=== PATIENT | male | born 1950 | race Caucasian/White ===

== ENCOUNTER 2023-07-22 20:04 | Emergency (ER) | payer OTHER ==
--- OUTSIDE RECORDS SUMMARY | 2023-07-22 20:08 | XMS REPORT | Clinical Summary ---
Author Name Unknown Organization [facility] Address [address] [place] [address] Care Team Providers Care Senior Outside Sales Representative Name Role Phone Ginger Turk Unavailable [phone] Gibson Morales MD Unavailable [email or web address] Cheryl Melgar ACADEMIC AFFAIRS DIRECTOR Unavailable [email or web address] Jono Fournier MD Primary Care Provider Pierre Bynum MD Unavailable [phone] Nikolas Finley MD Unavailable + [phone] Yonathan Sommers MD Unavailable Mayo LIU MD, William J Unavailable [phone] Tuan Ahmadi MD Unavailable [phone] Og Loomis MD Unavailable [phone] Jean Martinez MD Unavailable [phone] Keith Edmondson MD Unavailable Ed Mina MD Unavailable [phone] Ro Gilliam MD Unavailable [phone] Jono Hinson MD Unavailable Pasquale Jacome MD Unavailable Clifton Ahmadi MD Unavailable [phone] Allergies No known active allergies Medications Medication Sig Dispensed Refills Start Date End Date Status levothyroxine (SYNTHROID, LEVOTHROID) 25 mcg tablet Take 1 tablet (25 mcg) by mouth daily. Active TRAVOPROST OPHTHALMICIndica tions:bilateral Apply 1 drop to eye daily. Active alfuzosin (UROXATRAL) 10 mg 24 hr tabletIndication s:Benign prostatic hyperplasia with lower urinary tract symptom TAKE ONE TABLET BY MOUTH DAILY 90 tablet 3 05/29/2022 Active dorzolamide (TRUSOPT) 2% ophthalmic solution 06/06/2022 Active tolterodine (DETROL LA) 4 mg 24 hr capsuleIndicatio ns:Benign prostatic hyperplasia with lower urinary tract symptom Take 1 capsule (4 mg) by mouth daily. 90 capsule 3 09/07/2022 Active travoprost (TRAVATAN Z) 0.004% ophthalmic solution INSTILL 1 DROP IN BOTH EYES EVERY EVENING 11/21/2022 Active levothyroxine (SYNTHROID, LEVOTHROID) 50 mcg tablet TAKE 1 TABLET BY MOUTH DAILY IN THE MORNING ON AN EMPTY STOMACH 09/29/2022 Active senna-docusate (SENOKOT-S) 8.6 mg-50 mg tabletIndication s:Incisional hernia,Ventral hernia Take 1 tablet by mouth 2 (two) times a day as needed for constipation . 30 tablet 05/02/2021 3 Discontinued tolterodine (DETROL LA) 4 mg 24 hr capsuleIndicatio ns:Benign prostatic hyperplasia with lower urinary tract symptom Take 1 capsule (4 mg) by mouth daily. 90 capsule 3 09/04/2021 3 Discontinued(Reor hien) dorzolamide-danyelle lol, PF, 2-0.5 % dpet Apply 1 drop to eye. 10/04/2021 3 Discontinued(Ther apy completed) acetaminophen (TylenoL) 325 mg tabletIndication s:Inguinal hernia,Postopera tive pain Take 2 tablets (650 mg) by mouth every 6 (six) hours. 30 tablet 05/27/2022 3 Discontinued(Ther apy completed) celecoxib (CeleBREX) 200 mg capsuleIndicatio ns:Inguinal hernia,Postopera tive pain Take 1 capsule (200 mg) by mouth daily. 30 capsule 05/27/2022 3 Discontinued(Ther apy completed) methocarbamol (Robaxin-750) 750 mg tabletIndication s:Inguinal hernia,Postopera tive pain Take 1 tablet (750 mg) by mouth every 8 (eight) hours as needed (post op pain). 30 tablet 05/27/2022 3 Discontinued(Ther apy completed) acetaminophen (TylenoL) 325 mg tabletIndication s:Inguinal hernia,Postopera tive pain Take 2 tablets (650 mg) by mouth every 6 (six) hours as needed for mild pain. 45 tablet 05/27/2022 3 Discontinued(Ther apy completed) methocarbamol (Robaxin-750) 750 mg tabletIndication s:Inguinal hernia,Postopera tive pain Take 1 tablet (750 mg) by mouth every 8 (eight) hours as needed (post op pain). 30 tablet 05/27/2022 3 Discontinued(Ther apy completed) celecoxib (CeleBREX) 200 mg capsuleIndicatio ns:Inguinal hernia,Postopera tive pain Take 1 capsule (200 mg) by mouth twice daily. 30 capsule 05/27/2022 3 Discontinued(Ther apy completed) Active Problems Problem Noted Date Diagnosed Date Personal history of colon polyps 09/12/2021 Overview: 2pm, Estevan Dockery. , consult Cc: patient requesting consult to discuss appropriate timing for colonoscopy interval. last colonoscopy 3 years ago (2018), he is working on uploading records into chart. Department: [facility] Ordering/Authorizing: VISHAL RussoVanesa Barreto is a 71 y.o. male from [place], [place] with multiple comorbidities including GERD, hypothyroidism, obstructive sleep apnea, incisional hernia, and anemia. Patient is here today requesting consult to discuss appropriate timing for colonoscopy. Last OS colonoscopy 3 years ago (2018). History of prostate adenocarcinoma. Diagnosed in 05/2018. Started Hormonal Lupron injection since 12/09/18. Prostatectomy aborted due to the finding of peritoneal plaques and biopsies showed mesothelioma of peritoneum. Radiation to prostate (VMAT) 7800 cGy in 39 fractions from 05/05/19 - 06/28/19. 24 months of concurrent ADT with an LHRH agonist beginning 12-09-2018. Followed by [facility], Dr. Tuan Ahmadi. History of mesothelioma of peritoneum. On 07/14/2018, He was scheduled for robotic prostatectomy which was aborted when he was found to have peritoneal plaques. Biopsy revealed mesothelioma of peritoneum. He underwent Cytoreductive Surgery with hyperthermic intraperitoneal chemotherapy with cisplatin on 08/25/2018. He is currently on observation. No further chemoradiation. Followed by GI Surgery, Dr. Jean Martinez. 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 Patient is currently on observation with Dr. Pasquale Jacome. Patient had CT chest abdomen pelvis w wo contrast on 07/22/2018 for restaging of mesothelioma and had incidental finding of an enhancing lesion in the pancreas for suspected neuroendocrine tumor of pancreas. Tumor is stable and on observation with Dr. Og Loomis. He had a ventral hernia repair with mesh, exploratory celiotomy (laparotomy), freeing of intestinal adhesions with general surgery, Dr. Keith Edmondson on 04/30/2021. Patient has a history of glaucoma in both eyes (not sure open vs closed angle), but he is under care of an outside cost coordinator. GI symptom: Senna- docusate 8.6-50mg tablet, 1 tablet PO BID PRN constipation GERD? -Colonoscopy in 2013? -Last colonoscopy 3 years ago (2018). Report available? Any prior colonoscopy prior to radiation therapy? Father history of pancreatic cancer 62 y.o. Hypothyroidism 05/01/2021 Ventral hernia 03/07/2021 Overview: Added automatically from request for surgery [id number] Anemia 09/09/2019 Incisional hernia 07/22/2019 Bradycardia 08/13/2018 Last Assessment & Plan: Asymptomatic, I expect his sleeping pulse to be in the 40s. No intervention unless symptomatic Mesothelioma of peritoneum 07/31/2018 Abnormal radiographic imaging of pancreas 2018 Encounter for other preprocedural examination Overview: EKG 06/30/2018= Sinus bradycardia. HR 45. Pt is very active and has long h/o low HR. He is asymptomatic. He wears a Fit Bit and his pulse in clinic is consistently 58. Last Assessment & Plan: He walks more than 10k and 20k steps a day. Obesity 07/01/2018 Overview: BMI Readings from Last 2 Encounters: 07/01/18 31.14 kg/m 06/03/18 31.80 kg/m Last Assessment & Plan: He is working on a weight loss regimen Obstructive sleep apnea 07/01/2018 Overview: Uses CPAP "about 50% of the time" Pt knows to bring CPAP with him to procedure Last Assessment & Plan: Currently stable, no further recommendations are being made in regards to this for the planned procedure. For the purposes of perioperative evaluation, this particular issue should not be a concern, continue any medications that are associated with the issue. The patient may follow up with his / her PCP or appropriate MD Krunal Team for management of this issue. Gastroesophageal reflux disease 07/01/2018 Overview: occ r/t diet. No meds Last Assessment & Plan: Currently stable, no further recommendations are being made in regards to this for the planned procedure. For the purposes of perioperative evaluation, this particular issue should not be a concern, continue any medications that are associated with the issue. The patient may follow up with his / her PCP or appropriate MD Krunal Team for management of this issue. Adenocarcinoma of prostate 06/03/2018 Dependence on continuous pos itive airway pressure ventilation (aka CPAP ventilation dependent) Last Assessment & Plan: Pt will bring cpap device to hospital Follicular lymphoma Mass of pancreas Encounters Date Type Department Care Team Description 02/04/2023 Orders Only [facility] [address] [facility], 7th [place] [address] Jeannie Das PA Mass of pancreas (Primary Dx) 01/29/2023 8:37 AM ROCK CRUSHER - 01/29/2023 11:59 PM ROCK CRUSHER Hospital Encounter [facility] [address] [place] [id number] Beckie Alegria APRN Adenocarcinoma of prostate Discharge Disposition: Home 01/29/2023 8:26 AM ROCK CRUSHER - 01/29/2023 8:36 AM ROCK CRUSHER Hospital Encounter Radiation Oncology [address] [place] [address], 1st [place] [address] Adis Echevarria APRN Montoya, Anya M, APRN Adenocarcinoma of prostate Discharge Disposition: Home 01/28/2023 Orders Only Radiation Oncology [address] [place] [address], 1st [place] [address] Beckie Alegria APRN Adenocarcinoma of prostate (Primary Dx) 01/16/2023 4:40 PM ROCK CRUSHER Telemedicine [facility] [address] [facility], 6th [place] [address] Pasquale Jacome MD Follicular lymphoma, not otherwise specified (Primary Dx) 01/16/2023 10:35 AM ROCK CRUSHER Ancillary Procedure CT Imaging [address] [place] [address], 7th [place] [address] Pasquale Jacome MD Follicular lymphoma, not otherwise specified 01/16/2023 9:30 AM ROCK CRUSHER - 01/16/2023 11:59 PM ROCK CRUSHER Hospital Encounter [facility] [address] [place] [id number] Pasquale Jacome MD Follicular lymphoma, not otherwise specified; Mesothelioma of peritoneum Discharge Disposition: Home 01/16/2023 Orders Only Radiation Oncology [address] [place] [address], 1st [place] [address] Adis Echevarria APRN Adenocarcinoma of prostate (Primary Dx) 01/16/2023 Orders Only Radiation Oncology [address] [place] [address], 1st [place] [address] Adis Echevarria APRN Adenocarcinoma of prostate (Primary Dx) 12/17/2022 2:00 PM CDT Telemedicine [facility] [address] [place] [address], [facility] [place] [address] Keith Edmondson MD Abdominal hernia, not otherwise specified (Primary Dx) 09/27/2022 Orders Only [facility] [address] [place] [address], [facility] [place] [address] Sandra Akers APRN Mesothelioma of peritoneum (Primary Dx) 09/19/2022 8:30 AM CDT Telemedicine [facility] [address] [place] [address], [address] [place] [address] [place] [address] Jean Martinez MD Mesothelioma of peritoneum 09/13/2022 1:40 PM CDT Telemedicine [facility] [place] - Surgical Oncology [address] [place] [address], [address] [place] [address] [place] [address] Judy Amaro PA Mata, Daniel F, PA Abnormal radiographic imaging of pancreas 09/10/2022 4:00 PM CDT Telemedicine [facility] [address] [place] [address], [address] [place], [place] [address] [address] Pasquale Jacome MD Follicular lymphoma, not otherwise specified (Primary Dx) 09/10/2022 9:00 AM CDT Ancillary Procedure CT Imaging [facility], [address] [place] [address] [place] [address] Pasquale Jacome MD Follicular lymphoma, not otherwise specified 09/10/2022 7:58 AM CDT - 09/10/2022 11:59 PM CDT Hospital Encounter [facility] [address] [place] [address] Pasquale Jacome MD Follicular lymphoma, not otherwise specified; Abnormal radiographic imaging of pancreas Discharge Disposition: Home 09/10/2022 Telephone [facility] [address] [place] [address], [facility] [place] [address] Carito Mendoza RN 09/03/2022 10:00 AM CDT Follow-Up Genit[facility] Cancer Center [address] [facility], 7th [place] [address] Jerel Huber IV, MD Benign prostatic hyperplasia with lower urinary tract symptom 09/03/2022 Travel after 07/22/2022 Immunizations Name Administration Dates Next Due Moderna SARS-CoV-2 Vaccination 06/05/2020,2020 Surgical History Surgery Date Site/Laterality Comments UMBILICAL HERNIA REPAIR 02/18/2008 - 02/16/2009 unknown status of mesh. REPAIR OF REDUCIBLE INGUINAL HERNIA 02/17/2013 - 02/16/2014 Left with mesh. PA LAPS SURG BILATERAL TOTAL PELVIC LMPHADECTOMY 07/14/2018 Right Procedure: ROBOTIC ASSISTED PELVIC LYMPHADENECTOMY; Surgeon: Jono Fournier MD; Location: MAIN OR; Service: UROLOGY EXCISION WIDE LOCAL IOLM SNB UPPER LIMB 10/16/2012 Left VASECTOMY WISDOM TOOTH EXTRACTION PA UNLISTED CHEMOTHERAPY PROCEDURE 08/25/2018 Abdomen/N/A Procedure: (HIPEC) HYPERTHERMIC INTRAPERITONEAL CHEMOTHERAPY (HIPEC); Surgeon: Jean Martinez MD; Location: MAIN OR; Service: SURG ONC - GASTRIC/HIPEC Medical devices from this surgery are in the Medical Devices section. PA LAPS ABD PRTM&OMENTUM DX W/WO SPEC BR/WA SPX 08/25/2018 Abdomen/N/A Procedure: DIAGNOSTIC LAPAROSCOPY OF ABDOMEN, PERITONEUM, AND OMENTUM; Surgeon: Jean Martinez MD; Location: MAIN OR; Service: SURG ONC - GASTRIC/HIPEC Medical devices from this surgery are in the Medical Devices section. PA EXCISION/DESTRUCTION OPEN ABDOMINAL TUMOR 5 CM/< 08/25/2018 Abdomen/N/A Procedure: EXCISION OR DESTRUCTION, OPEN INTRA-ABDOMINAL TUMORS, CYSTS OR ENDOMETRIOMAS, 1 OR MORE PERITONEAL, MESENTERIC, OR RETROPERITONEAL PRIMARY OR SECONDARY TUMORS; Surgeon: Jean Martinez MD; Location: MAIN OR; Service: SURG ONC - GASTRIC/HIPEC Medical devices from this surgery are in the Medical Devices section. PA CYSTO W/INSERT URETERAL STENT 08/25/2018 Genitalia/Bilateral Procedure: CYSTOURETHROSCOPY WITH INSERTION OF INDWELLING URETERAL STENT; Surgeon: UROLOGY; Location: MAIN OR; Service: UROLOGY Medical devices from this surgery are in the Medical Devices section. COLONOSCOPY OTHER SURGICAL HISTORY 09/02/2012 Left excision melanoma PA REPAIR INCISIONAL HERNIA,REDUCIBLE 04/30/2021 Abdomen/Bilateral Procedure: REPAIR OF REDUCIBLE INCISIONAL OR VENTRAL HERNIA; Surgeon: Keith Edmondson MD; Location: MAIN OR; Service: SURG ONC - GENERAL Medical devices from this surgery are in the Medical Devices section. PA IMPLANT MESH HERNIA REPAIR/DEBRIDEMENT CLOSURE 04/30/2021 Abdomen/Bilateral Procedure: IMPLANTATION OF MESH FOR VENTRAL HERNIA REPAIR - PHASIX; Surgeon: Keith Edmondson MD; Location: MAIN OR; Service: SURG ONC - GENERAL Medical devices from this surgery are in the Medical Devices section. PA MUSC MYOCUTANEOUS/FASCIOCUTA NEOUS FLAP TRUNK 04/30/2021 Abdomen/Bilateral Procedure: MUSCLE/MYOCUTANEOUS/FASCIOC UTANEOUS FLAP OF TRUNK - KEVIN STOPVISHAL; Surgeon: Keith Edmondson MD; Location: MAIN OR; Service: SURG ONC - GENERAL Medical devices from this surgery are in the Medical Devices section. PA INJECTION AA&/STRD INTERCOSTAL NRV EA ADDL LVL 04/30/2021 Abdomen/Bilateral Procedure: REGIONAL ANESTHETIC BLOCK OF ABDOMINAL, BLOCK - TAP; Surgeon: Keith Edmondson MD; Location: MAIN OR; Service: SURG ONC - GENERAL Medical devices from this surgery are in the Medical Devices section. PA EXPLORATORY LAPAROTOMY CELIOTOMY W/WO BIOPSY SPX 04/30/2021 Abdomen/N/A Procedure: EXPLORATORY CELIOTOMY (LAPAROTOMY); Surgeon: Jean Martinez MD; Location: MAIN OR; Service: SURG ONC - GASTRIC/HIPEC Medical devices from this surgery are in the Medical Devices section. PA ENTEROLSS FRING INTSTINAL ADHESION SPX 04/30/2021 Abdomen/N/A Procedure: FREEING OF INTESTINAL ADHESION; Surgeon: Jean Martinez MD; Location: MAIN OR; Service: SURG ONC - GASTRIC/HIPEC Medical devices from this surgery are in the Medical Devices section. PA PHYS STANDBY SVC PROLNG PHYS ATTN EA 30 MINUTES 04/30/2021 Abdomen/N/A Procedure: PHYSICIAN STANDBY SERVICE REQUIRING PROLONGED ATTENDANCE - EACH 30 MINUTES; Surgeon: Ed Mina MD; Location: MAIN OR; Service: PLS - PLASTIC SURGERY Medical devices from this surgery are in the Medical Devices section. PA ENTEROLSS FRING INTSTINAL ADHESION SPX 04/30/2021 Abdomen/N/A Procedure: FREEING OF INTESTINAL ADHESION; Surgeon: Keith Edmondson MD; Location: MAIN OR; Service: SURG ONC - GENERAL Medical devices from this surgery are in the Medical Devices section. PA NEGATIVE PRESSURE WOUND THERAPY DME <= 50 SQ CM 04/30/2021 N/A Procedure: NEGATIVE PRESSURE WOUND THERAPY (WOUND VAC) - PREVENA; Surgeon: Keith Edmondson MD; Location: MAIN OR; Service: SURG ONC - GENERAL Medical devices from this surgery are in the Medical Devices section. PA COLONOSCOPY FLX DX W/COLLJ SPEC WHEN PFRMD 11/08/2021 N/A Procedure: DIAGNOSTIC FLEXIBLE COLONOSCOPY PROXIMAL TO SPLENIC FLEXURE; Surgeon: Jono Hinson MD; Location: MAIN ENDOSCOPY; Service: GASTROENTEROLOGY PA RPR 1ST INGUN HRNA AGE 5 YRS/> REDUCIBLE 05/27/2022 Abdomen/Bilateral Procedure: REPAIR OF REDUCIBLE INGUINAL HERNIA WITH MESH - heavy weight polyproylene, modified julita; Surgeon: Keith Edmondson MD; Location: MAIN OR; Service: SURG ONC - GENERAL Medical devices from this surgery are in the Medical Devices section. PA INJECTION AA&/STRD INTERCOSTAL NRV EA ADDL LVL 05/27/2022 Bilateral Procedure: REGIONAL ANESTHETIC BLOCK OF MULTIPLE INGUINAL REGIONAL BLOCK; Surgeon: Keith Edmondson MD; Location: MAIN OR; Service: SURG ONC - GENERAL Medical devices from this surgery are in the Medical Devices section. PA RMVL PROSTC MATRL/MESH ABDL WALL FOR INFECTION 05/27/2022 Left Procedure: REMOVAL OF MESH FROM LEFT GROIN; Surgeon: Keith Edmondson MD; Location: MAIN OR; Service: SURG ONC - GENERAL Medical devices from this surgery are in the Medical Devices section. PA BIOPSY NERVE 05/27/2022 Left Procedure: Ilioinguinal neurectomy; Surgeon: Keith Edmondson MD; Location: MAIN OR; Service: SURG ONC - GENERAL Medical devices from this surgery are in the Medical Devices section. 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 Asbestosis June 2018 Not documented. Fatty liver About two years ago. Sexual dysfunction Several years ago. Benign prostatic hyperplasia Abo ut 15 years ago. Prostate cancer Feb 2018 Mesothelioma July 16, 2018. Sarcoma Squamous cell carcinoma in situ of skin Basal cell carcinoma of skin Polyp of colon Don t remember Abnormal radiographic imagin g of pancreas 07/22/2018 Obstructive sleep apnea syndrome uses Cpap Hypothyroidism 05/01/2021 Family History Medical History Relation Name Comments Pancreatic cancer Father Clive Dockery Pancreatic cancer Maternal Cousin 3 Cancer Maternal Grandfather Type un known Cancer Maternal Grandmother Type un known Lung cancer Mother Marlyn Dockery Melanoma Mother Marlyn Dockery ocula r melanoma, of mets 5 years after enucleation Skin cancer Mother Marlyn Dockery Melan kota and others Cancer Paternal Aunt 2 Possible trevon gnosis of cancer Breast cancer Paternal Grandmother Saima Dockery Relation Name Status Comments Brother Alive Daughter 1 Alive Daughter 2 Alive Father Clive Dockery Maternal Aunt 1 (Age 83) Maternal Aunt 2 (Age 82) Maternal Cousin 1 Alive Maternal Cousin 2 Alive Maternal Cousin 3 (Age 60-65) Maternal Cousin 4 Alive Maternal Cousin 5 Maternal Cousin 6 Maternal Cousin 7 Maternal Grandfather (Age 50's) Maternal Grandmother (Age 50's) Mother Marlyn Dockery (Age 59) Nephew 1 Alive Nephew 2 Alive Niece 1 Alive Niece 2 Alive Niece/Nephew 1 Alive Niece/Nephew 2 Alive Niece/Nephew 3 Alive Paternal Aunt 1 (Age 90's) Paternal Aunt 2 (Age 60's-70's) Stroke Paternal Grandfather (Age 86) Paternal Grandmother Saima Dockery (Age 67- 68) Paternal Uncle 1 Paternal Uncle 2 (Age 60's) Sister 1 Alive Sister 2 Alive Son Alive Social History Tobacco Use Types Packs/Day Years Used Date Smoking Tobacco: Never Smokeless Tobacco: Never Alcohol Use Standard Drinks/Week Comments Never 0 (1 standard drink = 0.6 oz pure alcohol) very occasionally, glass of wine no more than once per week Education Answer Date Recorded What is the highest level of school you have completed or the highest degree you have received? Bachelor's degree (e.g., BA, AB, BS) 05/14/2022 Sex and Gender Information Value Date Recorded Sex Assigned at Male 06/02/2018 11:41 PM CDT Gender Identity Male 06/02/2018 11:41 PM CDT Sexual Orientation Straight 06/02/2018 11 :41 PM CDT Job Start Date Occupation Industry Not on file Not on file Not on file Obstetrics History Last Filed Vital Signs Vital Sign Reading Time Taken Comments Blood Pressure 103/66 09/03/2022 9:25 AM CDT Pulse 57 09/03/2022 9:25 AM CDT Temperature 36.2 C (97.2 F) 09/03/2022 9:25 AM CD T Respiratory Rate 16 09/03/2022 9:25 AM CDT Oxygen Saturation 98% 09/03/2022 9:25 AM CDT Inhaled Oxygen Concentration - - Weight 88.8 kg (195 lb 12.3 oz) 09/03/2022 9:25 AM CDT Height 173 cm (5' 8.11") 09/03/2022 9:25 AM CDT Body Mass Index 29.67 09/03/2022 9:25 AM CDT Plan of Treatment Upcoming Encounters Date Type Department Care Team (Late st Contact Info) Description 09/09/2023 3:00 PM CDT Telemedicine [facility] [address] [place] [address], 7th [place] [address] Jerel Huber IV, MD [address] [place] [id number] [email or web address] 12/23/2023 2:00 PM ROCK CRUSHER Telemedicine [facility] - Surgical Oncology [address] [place] [address], 7th [place] [address] Keith Edmondson MD [address] [place] [id number] [email or web address] 01/30/2024 11:00 AM ROCK CRUSHER Appointment Diagnostic [facility] Center [address] [place] [id number] Radha Martinez, AMBULANCE DRIVER [address] [place] [id number] [email or web address] 02/10/2024 7:00 AM ROCK CRUSHER Appointment [facility] [address] [place] [address], [place] [address] Pasquale Jacome MD [address] [place] [id number] [email or web address] 02/17/2024 9:00 AM ROCK CRUSHER Follow-Up [facility] [address] [place] [address], 6th [place] [address] Pasquale Jacome MD [address] [place] [id number] [email or web address] 09/12/2024 7:40 AM CDT Appointment Main CT IMAGING [address] [place] [address], 3rd [place] [address] Jeannie Das PA [address] [place] [id number] [email or web address] 09/13/2024 7:30 AM CDT Appointment [facility] [address] [place] [address] Vernon Florez PA [address] [place] [id number] [email or web address] 09/13/2024 9:40 AM CDT Follow-Up [facility] [address] [place] [address], 7th [place] [address] Dorothy Gooden MD [address] [place] [id number] [email or web address] 09/16/2024 11:30 AM CDT [facility] [address] [facility], 7th [place] [address] Jean Martinez MD [address] [place] [address] [email or web address] Health Maintenance Due Date Last Done Comments COVID-19 Vaccine ( season) 2022, 05/08/2020 Influenza Vaccine 10/19/2023 Medical Devices Implanted Type Area Filling Operator Device Identifier Shelf Expiration Date Model / Serial / Lot Mesh Marlex 2" X 12" - [id number] Implanted:Qty : 1 on 05/27/2022 by Keith Edmondson MD at [facility] GI//Lottery Clerk Midline: Groin [employer] 11/14/2026 [id number] / [id number] / [id number] Description:MESH CUT IN HALF AND USED FOR RIGHT AND LEFT GROIN. Mesh Srg Phasix [id number] Mfl - [id number] Implanted:Qty : 1 on 04/30/2021 by Keith Edmondson MD at [facility] Implant [employer] 03/16/2022 [id number] / / [id number] Vistaseal 10ml - [id number] Implanted:Qty : 1 on 04/30/2021 by Keith Edmondson MD at [facility] Implant Abdomen J&J 07/02/2022 [id number] / / [id number] Vistaseal 10ml - [id number] Implanted:Qty : 1 on 04/30/2021 by Keith Edmondson MD at [facility] Implant J&J 07/06/2022 VST10 / / [id number] [employer] - Sn/A Implanted:Qty : 3 on 08/25/2018 by Jean Martinez MD at [facility] Skin/Tissue N/A: Abdomen [employer] 03/19/2021 [id number] / N/A / [id number] [employer] - [id number] Implanted:Qty : 4 on 04/30/2021 by Keith Edmondson MD at [facility] Skin/Tissue Abdomen [employer] 09/06/2023 [id number] / / [id number] Procedures Procedure Name Priority Date/Time Associated Diagnosis Comments PROSTATE SPECIFIC ANTIGEN Routine 01/29/2023 8:51 AM [facility] Adenocarcinoma of prostate TESTOSTERONE LEVEL Routine 01/29/2023 8: 51 AM [facility] Adenocarcinoma of prostate CT CHEST ABDOMEN PELVIS W CONTRAST LYMPHOMA Routine 01/16/2023 12:26 PM [facility] Follicular lymphoma, not otherwise specified CT NECK W CONTRAST LYMPHOMA Routine 01/16/2023 12:26 PM [facility] Follicular lymphoma, not otherwise specified .CBC Routine 01/16/2023 9:44 AM [facility] Follicular lymphoma, not otherwise specified CARBOHYDRATE ANTIGEN 19-9 Routine 01/16/2023 9:44 AM [facility] Mesothelioma of peritoneum CARCINOEMBRYONIC ANTIGEN Routine 023 9:44 AM [facility] Mesothelioma of peritoneum VITAMIN D 25 HYDROXY LEVEL Routine 01/16/2023 9:44 AM [facility] Follicular lymphoma, not otherwise specified ELECTROLYTE PANEL Routine 01/16/2023 9:4 4 AM [facility] Follicular lymphoma, not otherwise specified ASPARTATE AMINOTRANSFERASE Routine 01/16/2023 9:44 AM [facility] Follicular lymphoma, not otherwise specified MAGNESIUM LEVEL Routine 01/16/2023 9:44 AM [facility] Follicular lymphoma, not otherwise specified ALANINE AMINOTRANSFERASE Routine 023 9:44 AM [facility] Follicular lymphoma, not otherwise specified LACTATE DEHYDROGENASE Routine 01/16/2023 9:44 AM [facility] Follicular lymphoma, not otherwise specified ALKALINE PHOSPHATASE Routine 01/16/2023 9:44 AM [facility] Follicular lymphoma, not otherwise specified FRACTIONATED BILIRUBIN Routine 9:44 AM [facility] Follicular lymphoma, not otherwise specified URIC ACID Routine 01/16/2023 9:44 AM [facility] Follicular lymphoma, not otherwise specified CREATININE Routine 01/16/2023 9:44 AM [facility] Follicular lymphoma, not otherwise specified BLOOD UREA NITROGEN Routine 01/16/2023 9 :44 AM [facility] Follicular lymphoma, not otherwise specified GLUCOSE, RANDOM Routine 01/16/2023 9:44 AM [facility] Follicular lymphoma, not otherwise specified PHOSPHORUS LEVEL Routine 01/16/2023 9:44 AM [facility] Follicular lymphoma, not otherwise specified CALCIUM LEVEL Routine 01/16/2023 9:44 AM [facility] Follicular lymphoma, not otherwise specified ALBUMIN LEVEL Routine 01/16/2023 9:44 AM [facility] Follicular lymphoma, not otherwise specified TOTAL PROTEIN Routine 01/16/2023 9:44 AM [facility] Follicular lymphoma, not otherwise specified COMPLETE BLOOD COUNT W/ DIFFERENTIAL Routine 01/16/2023 9:44 AM [facility] Follicular lymphoma, not otherwise specified CT CHEST ABDOMEN PELVIS W CONTRAST LYMPHOMA Routine 09/10/2022 10:55 AM CDT Follicular lymphoma, not otherwise specified CT NECK W CONTRAST LYMPHOMA Routine 09/10/2022 10:55 AM CDT Follicular lymphoma, not otherwise specified .GLOMERULAR FILTRATION RATE Routine 09/10/2022 8:14 AM CDT Follicular lymphoma, not otherwise specified SERUM CREATININE Routine 09/10/2022 8:14 AM CDT Follicular lymphoma, not otherwise specified DIFFERENTIAL Routine 09/10/2022 8:14 AM CDT Follicular lymphoma, not otherwise specified .CBC Routine 09/10/2022 8:14 AM CDT Follicular lymphoma, not otherwise specified HEMOGLOBIN A1C Routine 09/10/2022 8:14 AM CDT Abnormal radiographic imaging of pancreas CARBOHYDRATE ANTIGEN 19-9 Routine 09/10/2022 8:14 AM CDT Abnormal radiographic imaging of pancreas AMYLASE LEVEL Routine 09/10/2022 8:14 AM CDT Abnormal radiographic imaging of pancreas LIPASE LEVEL Routine 09/10/2022 8:14 AM CDT Abnormal radiographic imaging of pancreas VITAMIN D 25 HYDROXY LEVEL Routine 09/10/2022 8:14 AM CDT Follicular lymphoma, not otherwise specified ELECTROLYTE PANEL Routine 09/10/2022 8:1 4 AM CDT Follicular lymphoma, not otherwise specified ASPARTATE AMINOTRANSFERASE Routine 09/10/2022 8:14 AM CDT Follicular lymphoma, not otherwise specified MAGNESIUM LEVEL Routine 09/10/2022 8:14 AM CDT Follicular lymphoma, not otherwise specified ALANINE AMINOTRANSFERASE Routine 023 8:14 AM CDT Follicular lymphoma, not otherwise specified LACTATE DEHYDROGENASE Routine 09/10/2022 8:14 AM CDT Follicular lymphoma, not otherwise specified ALKALINE PHOSPHATASE Routine 09/10/2022 8:14 AM CDT Follicular lymphoma, not otherwise specified FRACTIONATED BILIRUBIN Routine 8:14 AM CDT Follicular lymphoma, not otherwise specified URIC ACID Routine 09/10/2022 8:14 AM CDT Follicular lymphoma, not otherwise specified CREATININE Routine 09/10/2022 8:14 AM CDT Follicular lymphoma, not otherwise specified BLOOD UREA NITROGEN Routine 09/10/2022 8 :14 AM CDT Follicular lymphoma, not otherwise specified GLUCOSE, RANDOM Routine 09/10/2022 8:14 AM CDT Follicular lymphoma, not otherwise specified PHOSPHORUS LEVEL Routine 09/10/2022 8:14 AM CDT Follicular lymphoma, not otherwise specified CALCIUM LEVEL Routine 09/10/2022 8:14 AM CDT Follicular lymphoma, not otherwise specified ALBUMIN LEVEL Routine 09/10/2022 8:14 AM CDT Follicular lymphoma, not otherwise specified TOTAL PROTEIN Routine 09/10/2022 8:14 AM CDT Follicular lymphoma, not otherwise specified COMPLETE BLOOD COUNT W/ DIFFERENTIAL Routine 09/10/2022 8:14 AM CDT Follicular lymphoma, not otherwise specified after 07/22/2022 Results * Testosterone Level (01/29/2023 8:51 AM [facility]) [facility] Testosterone Total 400 193 - 740 ng/dL 01/29/2023 9:53 AM [facility] Blood Peripheral blood specimen / Unknown Venipuncture / Unknown 01/29/2023 8:51 AM [facility] 01/29/2023 8:52 AM [facility] Narrative [facility] - 01/29/2023 9:53 AM [facility] Reference Ranges: Male: Age 20 - 49 249 - 836 Age >=50 193 - 740 Female: Age 20 - 49 8 - 48 Age >=50 3 - 41 Beckie Alegria APRN LAB BLOOD ORDER ERIKA [facility] Unless otherwise noted, all lab tests performed by: Division of Pathology and Laboratory Medicine [address] [place] [id number] * PSA (01/29/2023 8:51 AM [facility]) Prostate Specific Antigen 0.2 0.0 - 4.0 ng/mL 01/29/2023 9:41 AM [facility] Comment: "Reference range established based on adult population Results greater than 4519 ng/mL may not be reliable due to matrix effect with extended dilution as it exceeds the director retirement's recommended limit. Caution should be exercised when interpreting such values and done in conjunction with clinical context. PSA Indication Diagnostic 01/29/2023 9:41 AM [facility] Blood Peripheral blood specimen / Unknown Venipuncture / Unknown 01/29/2023 8:51 AM [facility] 01/29/2023 8:52 AM [facility] Beckie Alegria APRN LAB BLOOD ORDER ERIKA [facility] [address] [facility] [place] [address] * CT Chest Abdomen Pelvis with Contrast Lymphoma (01/16/2023 12:26 PM [facility]) Only the most recent of2 resultswithin the time period is included. Anatomical Region Laterality Modality Chest, Abdomen, Pelvis Computed Tomography 01/16/2023 12:4 4 PM [facility] Impressions 01/16/2023 1:07 PM [facility] 1. Stable pancreatic hyperenhancing lesion likely a neuroendocrine tumor. 2. No lymphadenopathy in the chest, abdomen or pelvis. ACTIONABLE ITEMS/RECOMMENDATIONS: None. Narrative 01/16/2023 1:07 PM [facility] FULL RESULT: Examination: CT CHEST ABDOMEN PELVIS W CONTRAST LYMPHOMA on 01/16/2023 12:26 PM. Clinical History: Follicular lymphoma Indication: lymphoma restaging Comparison: CT on 09/10/2022. Technique: CT CHEST ABDOMEN PELVIS W CONTRAST LYMPHOMA. Findings: CHEST: Lungs and Pleura: No suspicious pulmonary nodule. No consolidation. No pleural effusion. Cardiomediastinum: The heart is normal in size. No pericardial effusion. Coronary artery calcifications. Lymph nodes: No lymphadenopathy. ABDOMEN AND PELVIS: Hepatobiliary: No suspicious hepatic lesion. No biliary dilatation. No cholecystitis. Spleen: No splenomegaly. Pancreas: Stable 0.7 cm hyperenhancing pancreatic body lesion (series 302, image 172) likely a neuroendocrine tumor. No ductal dilatation. Adrenal Glands: No mass. Kidneys, Ureters, Bladder: Stable bilateral renal cysts, the largest in superior pole of the right kidney measures 7.8 cm. No hydronephrosis. No suspicious renal lesion. No bladder mass. Gastrointestinal Tract: No obstruction. Pelvic Organs: Mildly enlarged prostate containing metallic densities suggestive of brachytherapy beads. Peritoneum/Retroperitoneum: No ascites. Lymph Nodes: No lymphadenopathy. MUSCULOSKELETAL: No suspicious skeletal lesion. Stable bone islands. Post bilateral inguinal hernia repairs. Procedure Note Iva Alonzo MD - 01/16/2023 FULL RESULT: Examination: CT CHEST ABDOMEN PELVIS W CONTRAST LYMPHOMA on 312:26 PM. Clinical History: Follicular lymphoma Indication: lymphoma restaging Comparison: CT on 09/10/2022. Technique: CT CHEST ABDOMEN PELVIS W CONTRAST LYMPHOMA. Findings: CHEST: Lungs and Pleura: No suspicious pulmonary nodule. No consolidation. Nopleural effusion. Cardiomediastinum: The heart is normal in size. No pericardial effusion.Coronary artery calcifications. Lymph nodes: No lymphadenopathy. ABDOMEN AND PELVIS: Hepatobiliary: No suspicious hepatic lesion. No biliary dilatation. Nocholecystitis. Spleen: No splenomegaly. Pancreas: Stable 0.7 cm hyperenhancing pancreatic body lesion (series 302,image 172) likely a neuroendocrine tumor. No ductal dilatation. Adrenal Glands: No mass. Kidneys, Ureters, Bladder: Stable bilateral renal cysts, the largest insuperior pole of the right kidney measures 7.8 cm. No hydronephrosis. Nosuspicious renal lesion. No bladder mass. Gastrointestinal Tract: No obstruction. Pelvic Organs: Mildly enlarged prostate containing metallic densitiessuggestive of brachytherapy beads. Peritoneum/Retroperitoneum: No ascites. Lymph Nodes: No lymphadenopathy. MUSCULOSKELETAL: No suspicious skeletal lesion. Stable bone islands. Post bilateralinguinal hernia repairs. IMPRESSION: 1. Stable pancreatic hyperenhancing lesion likely a neuroendocrinetumor. 2. No lymphadenopathy in the chest, abdomen or pelvis. ACTIONABLE ITEMS/RECOMMENDATIONS: None. Pasquale Jacome MD IMG CT ORDERABLES * CT Neck with Contrast Lymphoma (01/16/2023 12:26 PM [facility]) Only the most recent of2 resultswithin the time period is included. Anatomical Region Laterality Modality Neck Computed Tomogra phy 01/16/2023 5:30 PM [facility] Impressions 01/16/2023 5:31 PM [facility] 1. No cervical lymphadenopathy. 2. No acute sinusitis. ACTIONABLE ITEMS/RECOMMENDATIONS: None. Narrative 01/16/2023 5:31 PM [facility] FULL RESULT: Examination: CT NECK W CONTRAST LYMPHOMA on 01/16/2023 12:26 PM. CLINICAL HISTORY: Follicular lymphoma, not otherwise specified INDICATION: lymphoma restaging COMPARISON: 09/10/2022. TECHNIQUE: CT neck with IV contrast was performed. FINDINGS: Lymph nodes: There is no imaging evidence of cervical lymphadenopathy. Other findings: The upper aerodigestive tract is unremarkable. The major salivary glands are unremarkable. The thyroid gland is normal is appearance. The visualized paranasal sinuses are predominantly clear. There is chronic atelectasis of the left-sided maxillary sinus, stable. The cervical arteries and veins are patent. The visualized brain parenchyma is unremarkable. The visualized lung apices are clear. Procedure Note Alonzo Lombardo MD - 01/16/2023 FULL RESULT: Examination: CT NECK W CONTRAST LYMPHOMA on 01/16/2023 12:26 PM. CLINICAL HISTORY: Follicular lymphoma, not otherwise specified INDICATION: lymphoma restaging COMPARISON: 09/10/2022. TECHNIQUE: CT neck with IV contrast was performed. FINDINGS: Lymph nodes: There is no imaging evidence of cervical lymphadenopathy. Other findings: The upper aerodigestive tract is unremarkable. The major salivary glands are unremarkable. The thyroid gland is normal is appearance. The visualized paranasal sinuses are predominantly clear. There is chronicatelectasis of the left-sided maxillary sinus, stable. The cervical arteries and veins are patent. The visualized brain parenchyma is unremarkable. The visualized lung apices are clear. IMPRESSION: 1. No cervical lymphadenopathy. 2. No acute sinusitis. ACTIONABLE ITEMS/RECOMMENDATIONS: None. Pasquale Jacome MD [facility] CT ORDERABLES * Glucose, Random (01/16/2023 9:44 AM [facility]) Only the most recent of2 resultswithin the time period is included. Glucose Random 95 70 - 199 mg/dL 01/16/2023 10:43 AM [facility] Blood Venipuncture / Unknown 01/16/2023 9:44 AM [facility] 01/16/2023 9:59 AM [facility] Narrative [facility] - 01/16/2023 10:43 AM [facility] Effective 09/13/15, the glucose reference intervals have been updated based on [place] [employer] guidelines (Standards of Medical Care in Diabetes 2016. Diabetes Care 2016; 39: S13-S22). Fasting blood glucose: Normal: 70-99 mg/dL Impaired fasting glucose (increased risk for diabetes or pre-diabetes): 100-125 mg/dL Diabetes mellitus: >/=126 mg/dL Random blood glucose: Normal: 70-199 mg/dL Note: Random glucose >100 mg/dL is associated with increased risk for diabetes Pasquale Jacome MD LAB BLOOD ORDERABLES [facility] [address] [facility] [place] [address] * .CBC (01/16/2023 9:44 AM [facility]) Only the most recent of2 resultswithin the time period is included. [facility] White Blood Cell 5.6 4.1 - 10.5 K/uL 01/16/2023 10:05 AM [facility] Red Blood Cell 5.00 4.30 - 6.04 M/uL 01/16/2023 10:05 AM [facility] Hemoglobin 15.5 13.3 - 17.4 g/dL 01/16/2023 10:05 AM [facility] Hematocrit 46.1 39.5 - 51.8 % 01/16/2023 10:05 AM [facility] Mean Cell Volume 92 82 - 99 fL 01/17/20 23 10:05 AM [facility] Mean Cell Hemoglobin 31.0 26.6 - 33.2 pg 01/16/2023 10:05 AM [facility] Mean Cell Hemoglobin Concentration 33.6 31.1 - 35.2 g/dL 01/16/2023 10:05 AM [facility] RDW-SD 49.0 37.5 - 49.7 fL 01/16/2023 10:05 AM [facility] Red Cell Diameter Width 14.5 11.6 - 15.5 % 01/16/2023 10:05 AM [facility] Platelet 162 160 - 397 K/uL 01/16/2023 10:05 AM [facility] Mean Platelet Volume 10.5 9.1 - 12.6 fL 01/16/2023 10:05 AM [facility] INRBC 0.0 0.0 - 0.1 /100 WBC 01/16/2023 10:05 AM [facility] Comment: The INRBC (instrument NRBC) value reflects the enumeration of nucleated red blood cells contained in a 200uL sample of whole blood analyzed by the instrument. This value may differ from the NRBC value reported in a manual differential, which is based on a 100 cell differential. Neutrophil % 69.2 43.2 - 72.7 % 01/16/2023 10:05 AM [facility] Lymphocyte % 21.0 16.8 - 46.2 % 01/16/2023 10:05 AM [facility] Monocyte % 7.7 5.1 - 12.5 % 01/16/2023 10:05 AM [facility] Eosinophil % 0.9 0.4 - 6.3 % 01/16/2023 10:05 AM [facility] Basophil % 0.5 0.2 - 1.4 % 01/16/2023 10:05 AM [facility] IGRE % 0.7 0.1 - 1.5 % 01/16/2023 10:05 AM [facility] Comment:The IGRE% includes M etamyelocytes, Myelocytes and Promyelocytes. Neutrophil Abs 3.84 1.95 - 7.25 K/uL 01/16/2023 10:05 AM [facility] Lymphocyte Abs 1.17 1.01 - 3.24 K/uL 01/16/2023 10:05 AM [facility] Monocyte Abs 0.43 0.24 - 0.85 K/uL 01/16/2023 10:05 AM [facility] Eosinophil Abs 0.05 0.02 - 0.50 K/uL 01/16/2023 10:05 AM [facility] Basophil Abs 0.03 0.02 - 0.09 K/uL 01/16/2023 10:05 AM [facility] IG Abs 0.04 0.01 - 0.12 K/uL 01/16/2023 10:05 AM [facility] Blood Venipuncture / Unknown 01/16/2023 9:44 AM [facility] 01/16/2023 9:59 AM [facility] Pasquale Jacome MD LAB BLOOD ORDERABLES Performing Organization Address City/[facility] Co de Phone Number [facility] [address] [place] [address]. [address] [place] [address] * Fractionated Bilirubin (01/16/2023 9:44 AM [facility]) Only the most recent of2 resultswithin the time period is included. Bilirubin Direct 01/17/20 10:43 AM [facility] Comment: Direct and indirect bilirubin will not be reported when Total bilirubin result is <0.3 mg/dL Indocyanine Green (ICG) may cause falsely elevated bilirubin results. Total and direct bilirubin must not be measured from samples containing indocyanine green. Bilirubin Indirect 2022 10:43 AM [facility] Comment:Direct and indirect bilirubin will not be reported when Total bilirubin result is <0.3 mg/dL Bilirubin Total <0.3 <=1.2 mg/dL 01/16/2023 10:43 AM [facility] Comment: Direct and indirect bilirubin will not be reported when Total bilirubin result is <0.3 mg/dL Indocyanine Green (ICG) may cause falsely elevated bilirubin results. Total and direct bilirubin must not be measured from samples containing indocyanine green. False elevation of total bilirubin can be seen in patients with IgG concentrations above 28 g/L. Blood Venipuncture / Unknown 01/16/2023 9:44 AM [facility] 01/16/2023 9:59 AM [facility] Pasquale Jacome MD LAB BLOOD ORDERABLES [facility] [address] [place] [address]. [address] [place] [address] * CA 19-9 (01/16/2023 9:44 AM [facility]) Only the most recent of2 resultswithin the time period is included. CA 19-9 5.6 <=35.0 U/mL 01/16/2023 10:44 AM [facility] Blood Venipuncture / Unknown 01/16/2023 9:44 AM [facility] 01/16/2023 9:59 AM [facility] Narrative [facility] - 01/16/2023 10:44 AM [facility] Results greater than 9500 U/mL may not be reliable due to matrix effect with extended dilution as it exceeds the director retirement's recommended limit. Caution should be exercised when interpreting such values and done in conjunction with clinical context. This test is measured by electrochemiluminescence immunoassay on Valentina Librado immunoassay analyzers. Results obtained in different methods are not interchangeable. Sandra Akers APRN LAB BLOOD ORDERABLES Performing Organization Address City/[facility]/ZIP Co de Phone Number [facility] [address] [facility] [place] [address] * Vitamin D 25OH (01/16/2023 9:44 AM [facility]) Only the most recent of2 resultswithin the time period is included. Vitamin D 25 OH 34 30 - 100 ng/mL 01/16/2023 11:17 AM [facility] Blood Venipuncture / Unknown 01/16/2023 9:44 AM [facility] 01/16/2023 10:00 AM [facility] Narrative [facility] - 01/16/2023 11:17 AM [facility] Reference Range: Deficiency: <=20 ng/mL Insufficiency: 21-29 ng/mL Sufficiency: 30-100 ng/mL Potential toxicity: >100 ng/mL Pasquale Jacome MD LAB BLOOD ORDERABLES [facility] Unless otherwise noted, all lab tests performed by: Division of Pathology and Laboratory Medicine [address] [place] [id number] * Uric Acid (01/16/2023 9:44 AM [facility]) Only the most recent of2 resultswithin the time period is included. Uric Acid 6.0 3.4 - 7.0 mg/dL 01/16/2023 10:43 AM [facility] Blood Venipuncture / Unknown 01/16/2023 9:44 AM [facility] 01/16/2023 9:59 AM [facility] Pasquale Jacome MD LAB BLOOD ORDERABLES Performing Organization Address City/[facility] Co de Phone Number [address] [place] [address] * BUN (01/16/2023 9:44 AM [facility]) Only the most recent of2 resultswithin the time period is included. BUN 17 6 - 23 mg/dL 01/16/2023 10:43 AM [facility] Blood Venipuncture / Unknown 01/16/2023 9:44 AM [facility] 01/16/2023 9:59 AM [facility] Pasquale Jacome MD LAB BLOOD ORDERABLES Performing Organization Address [facility] de Phone Number [address] [place] [address] * Alanine Aminotransferase (01/16/2023 9:44 AM [facility]) Only the most recent of2 resultswithin the time period is included. ALT 17 <=41 U/L 01/16/2023 10: 43 AM [facility] Blood Venipuncture / Unknown 01/16/2023 9:44 AM [facility] 01/16/2023 9:59 AM [facility] Pasquale Jacome MD LAB BLOOD ORDERABLES Performing Organization Address City/[facility] Co de Phone Number [address] [place] [address] * Aspartate Aminotransferase (01/16/2023 9:44 AM [facility]) Only the most recent of2 resultswithin the time period is included. AST 21 <=40 U/L 01/16/2023 10: 43 AM [facility] Blood Venipuncture / Unknown 01/16/2023 9:44 AM [facility] 01/16/2023 9:59 AM [facility] Pasquale Jacome MD LAB BLOOD ORDERABLES Performing Organization Address [facility] de Phone Number [address] [place] [address] * Total Protein (01/16/2023 9:44 AM [facility]) Only the most recent of2 resultswithin the time period is included. Tot Protein 7.1 6.4 - 8.3 gm/dL 01/16/2023 10:43 AM [facility] Blood Venipuncture / Unknown 01/16/2023 9:44 AM [facility] 01/16/2023 9:59 AM [facility] Narrative [facility] - 01/16/2023 10:43 AM [facility] Reference range established based on adult population Pasquale Jacome MD LAB BLOOD ORDERABLES Performing Organization Address [facility] de Phone Number [address] [place] [address] * Phosphorus Level (01/16/2023 9:44 AM [facility]) Only the most recent of2 resultswithin the time period is included. Phosphorus Level 2.9 2.5 - 4.5 mg/dL 01/16/2023 10:43 AM [facility] Blood Venipuncture / Unknown 01/16/2023 9:44 AM [facility] 01/16/2023 9:59 AM [facility] Pasquale Jacome MD LAB BLOOD ORDERABLES Performing Organization Address [facility] de Phone Number [address] [address] [place] [address] * Alkaline Phosphatase (01/16/2023 9:44 AM ROCK CRUSHER) Only the most recent of2 resultswithin the time period is included. Alkaline Phosphatase 50 40 - 129 U/L 01/16/2023 10:43 AM ROCK CRUSHER [facility] Blood Venipuncture / Unknown 01/16/2023 9:44 AM ROCK CRUSHER 01/16/2023 9:59 AM ROCK CRUSHER Pasquale Jacome MD LAB BLOOD ORDERABLES Performing Organization Address [facility]/ZIP Co de Phone Number [facility] [address] [place] [address]. [address] [place] [address] * Magnesium Level (01/16/2023 9:44 AM ROCK CRUSHER) Only the most recent of2 resultswithin the time period is included. Pathologist [facility] Magnesium Level 2.1 1.6 - 2.6 mg/dL 01/16/2023 10:43 AM [facility] Blood Venipuncture / Unknown 01/16/2023 9:44 AM ROCK CRUSHER 01/16/2023 9:59 AM ROCK CRUSHER Pasquale Jacome MD LAB BLOOD ORDERABLES Performing Organization Address [facility] de Phone Number [address] [place] [address] * LDH (01/16/2023 9:44 AM ROCK CRUSHER) Only the most recent of2 resultswithin the time period is included. [facility] LDH 138 135 - 225 U/L 01/16/2023 10:55 AM ROCK CRUSHER [facility] Blood Venipuncture / Unknown 01/16/2023 9:44 AM ROCK CRUSHER 01/16/2023 10:00 AM ROCK CRUSHER Narrative [facility] - 01/16/2023 10:55 AM ROCK CRUSHER Results greater than 1651 U/L may not be reliable due to matrix effect with extended dilution as it exceeds the director retirement's recommended limit. Caution should be exercised when interpreting such values and done in conjunction with clinical context. Pasquale Jacome MD LAB BLOOD ORDERABLES Performing Organization Address [facility] Co de Phone Number [address] [place] [address] * Creatinine (01/16/2023 9:44 AM ROCK CRUSHER) Pathologist [facility] Creatinine 0.99 0.67 - 1.17 mg/dL 01/16/2023 10:43 AM [facility] eGFR 81 >=60 mL/min/1.7 3 sq. m 01/16/2023 10:43 AM [facility] Comment: The eGFRcr is calculated with the 2020 CKD-EPI creatinine equation using creatinine, patient's age, and sex for adults 18 years of age and older. Other factors, especially muscle mass, may affect accuracy and need to be considered. According to the Kidney Disease: Improving Global Outcomes (KDIGO) CKD Work Group 2012 Clinical Practice Guideline, chronic kidney disease (CKD) is defined as the abnormalities of kidney structure or function, present for more than 3 months, with implications for health. CKD should be classified by cause, GFR category, and albuminuria category. KDIGO guidelines provide the following GFR categories. Stage / Description / GFR mL/min/1.73 m2: G1* / Normal or high / >= 90 G2* / Mildly decreased / 60-89 G3a / Mildly to moderately decreased / 45-59 G3b / Moderately to severely decreased / 30-44 G4 / Severely decreased / 15-29 G5 / Kidney failure / <15 *In the absence of evidence of kidney damage, neither G1 nor G2 fulfill criteria for CKD. Blood Venipuncture / Unknown 01/16/2023 9:44 AM ROCK CRUSHER 01/16/2023 9:59 AM ROCK CRUSHER Pasquale Jacome MD LAB BLOOD ORDERABLES [facility] [address] [facility] [place] [address] * CEA (01/16/2023 9:44 AM ROCK CRUSHER) Carcinoembryonic Antigen 0.8 <=3.8 ng/mL 01/16/2023 10:44 AM [facility] Blood Venipuncture / Unknown 01/16/2023 9:44 AM ROCK CRUSHER 01/16/2023 9:59 AM ROCK CRUSHER Narrative [facility] - 01/16/2023 10:44 AM [facility] Reference Ranges (age 20-69 years): Non-smoker: 0.0 - 3.8 ng/mL Smoker: 0.0 - 5.5 ng/mL This test is measured by electrochemiluminescence immunoassay on Valentina Librado immunoassay analyzers. Results obtained in different methods are not interchangeable. Sandra To AMBULANCE DRIVER LAB BLOOD ORDERABLES Performing Organization Address City/[facility] Co de Phone Number [facility] [address] [place] [address]. [address] [place] [address] * Calcium Level (01/16/2023 9:44 AM ROCK CRUSHER) Only the most recent of2 resultswithin the time period is included. Calcium Level Total 9.1 8.2 - 10.2 mg/dL 01/16/2023 10:43 AM [facility] Blood Venipuncture / Unknown 01/16/2023 9:44 AM ROCK CRUSHER 01/16/2023 9:59 AM ROCK CRUSHER Pasquale Jacome MD LAB BLOOD ORDERABLES Performing Organization Address [facility] Co de Phone Number [address] [place] [address] * Albumin Level (01/16/2023 9:44 AM ROCK CRUSHER) Only the most recent of2 resultswithin the time period is included. Albumin Level 4.6 3.5 - 5.2 gm/dL 01/16/2023 10:43 AM [facility] Blood Venipuncture / Unknown 01/16/2023 9:44 AM ROCK CRUSHER 01/16/2023 9:59 AM ROCK CRUSHER Pasquale Jacome MD LAB BLOOD ORDERABLES Performing Organization Address City/[facility] Co de Phone Number [address] [place] [address] * (ABNORMAL) Electrolyte Panel (01/16/2023 9:44 AM ROCK CRUSHER) Only the most recent of2 resultswithin the time period is included. Sodium Level 139 136 - 145 mmol/L 01/16/2023 10:43 AM [facility] Potassium Level 4.7(H) 3.4 - 4.5 mmol/L 01/16/2023 10:43 AM [facility] Chloride 104 98 - 107 mmol/L 01/16/2023 10:43 AM [facility] CO2 25 22 - 29 mmol/L 01/16/2023 10:43 AM ROCK CRUSHER [facility] Anion Gap 10 4 - 14 mmol/L 01/16/2023 10:43 AM ROCK CRUSHER [facility] Blood Venipuncture / Unknown 01/16/2023 9:44 AM ROCK CRUSHER 01/16/2023 9:59 AM ROCK CRUSHER Pasquale Jacome MD LAB BLOOD ORDERABLES [address] [place] [address] * .Serum Creatinine (09/10/2022 8:14 AM CDT) Creatinine 1.02 0.67 - 1.17 mg/dL [facility] Comment:Testing Performed at [facility], [address] [place] [address], [address], [place] [address] Blood 09/10/2022 8:14 AM CDT 09/10/2022 8:30 AM CDT Pasquale Jacome MD LAB BLOOD ORDERABLES Performing Organization Address City/[facility]/ZIP Co de Phone Number [address] [place] [address] * Glomerular Filtration Rate (09/10/2022 8:14 AM CDT) eGFR 78 >=60 mL/min/1.7 3 sq. m [facility] Comment: The eGFRcr is calculated with the 2020 CKD-EPI creatinine equation using creatinine, patient's age, and sex for adults 18 years of age and older. Other factors, especially muscle mass, may affect accuracy and need to be considered. According to the Kidney Disease: Improving Global Outcomes (KDIGO) CKD Work Group 2012 Clinical Practice Guideline, chronic kidney disease (CKD) is defined as the abnormalities of kidney structure or function, present for more than 3 months, with implications for health. CKD should be classified by cause, GFR category, and albuminuria category. KDIGO guidelines provide the following GFR categories Stage Description GFR mL/min/1.73 m2 G1* Normal or high >= 90 G2* Mildly decreased 60-89 G3a Mildly to moderately decreased 45-59 G3b Moderately to severely decreased 30-44 G4 Severely decreased 15-29 G5 Kidney failure <15 *In the absence of evidence of kidney damage, neither G1 nor G2 fulfill criteria for CKD. Testing Performed at [facility], [address] [place] [address], [address], [place] [address] Blood 09/10/2022 8:14 AM CDT 09/10/2022 8:30 AM CDT Pasquale Jacome MD LAB BLOOD ORDERABLES [address] [place] [address] * Differential (09/10/2022 8:14 AM CDT) Neutrophil % 67.0 43.2 - 72.7 % [facility] Comment:As part of Different ial performed at [facility], [address] [place] [address], [address], [place] [address] Lymphocyte % 22.9 16.8 - 46.2 % [facility] Monocyte % 8.3 5.1 - 12.5 % [facility] Eosinophil % 0.8 0.4 - 6.3 % [facility] Basophil % 0.4 0.2 - 1.4 % [facility] IGRE % 0.6 0.1 - 1.5 % [facility] Comment: IGRE % count includes Metamyelocytes, Myelocytes, and Promyelocytes. As part of Differential performed at [facility], [address] [place] [address], [address], [place] [address] Neutrophil Abs 3.57 1.95 - 7.25 K/uL [facility] Lymphocyte Abs 1.22 1.01 - 3.24 K/uL [facility] Monocyte Abs 0.44 0.24 - 0.85 K/uL [facility] Eosinophil Abs 0.04 0.02 - 0.50 K/uL [facility] Basophil Abs 0.02 0.02 - 0.09 K/uL [facility] IG Abs 0.03 0.01 - 0.12 K/uL [facility] Blood 09/10/2022 8:14 AM CDT 09/10/2022 8:19 AM CDT Pasquale Jacome MD LAB BLOOD ORDERABLES [facility] [address] [place] [address]. [address] [place] [address] * Lipase Level (09/10/2022 8:14 AM CDT) Lipase Lvl 22 13 - 60 U/L [facility] Comment:Testing Performed at [facility], [address] [place] [address], [address], [place] [address] Blood 09/10/2022 8:14 AM CDT 09/10/2022 8:30 AM CDT Judy RODGERS LAB BLOOD ORDER ERIKA Performing Organization Address [facility] Co de Phone Number [address] [place] [address] * Hemoglobin A1c (09/10/2022 8:14 AM CDT) A1C 5.2 4.3 - 5.6 % [facility] Comment: HbA1c values >=6.5% are diagnostic of diabetes mellitus. Diagnosis should be confirmed by repeat testing. Therapeutic Action suggested: >8.0% HbA1c; Goal of therapy: <7.0% HbA1c Blood 09/10/2022 8:14 AM CDT 09/10/2022 8:45 AM CDT Judy RODGERS LAB BLOOD ORDER ERIKA [facility] Unless otherwise noted, all lab tests performed by: Division of Pathology and Laboratory Medicine [address] [place] [id number] * Amylase Level (09/10/2022 8:14 AM CDT) Amylase Lvl 37 28 - 100 U/L [facility] Comment:Testing Performed at [facility], [address] [place] [address], [address], [place] [address] Blood 09/10/2022 8:14 AM CDT 09/10/2022 8:30 AM CDT Judy RODGERS LAB BLOOD ORDER ERIKA [facility] 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 Advance Directives: Living Will 05/27/2022 Directive to Physici ans and Family or Surrogates-Living Will Advance Directives: Medical Power of Borderer 05/27/2022 Medical Power of Att orney Advance Directives: Medical Power of Borderer 07/01/2018 Medical Power of Att orney * Full Code (Latest Code Status on File) Date Activated Date Inactivated Comments 05/27/2022 5:01 PM 05/27/2022 7:13 PM * Full Code Date Activated Date Inactivated Comments 04/30/2021 4:37 PM 05/03/2021 4:27 PM * Full Code Date Activated Date Inactivated Comments 08/25/2018 7:35 AM 09/02/2018 5:02 PM * Full Code Date Activated Date Inactivated Comments 07/14/2018 7:35 AM 07/14/2018 7:15 PM Care Teams Senior Outside Sales Representative Relationship Specialty Start Date End Date Jono Fournier MD [address] [place] [phone] [email or web address] PCP - General Urology 06/03/18 Pierre Bynum MD [address] [place] [address] [place], [place] [address] [email or web address] ([employer]: [email or web address]). [email or web address] PCP - External Primary Care Provider Family Practice 06/03/18 Nikolas Finley MD [address] [place] [address] [id number] PCP - External Follow Up A Urology 06/03/18 Ginger Turk PA [address] [place] [phone] [email or web address] Physician Night Worker 04/26/15 Gibson Morales [email or web address]. [facility] Physician 04/26/15 Cheryl Melgar NP [email or web address] Nurse Practitioner 04/26/15 Yonathan Sommers MD [address] [place] [id number] [email or web address] Consulting Physician Radiation Oncology 11/16/18 Jerel Huber IV, MD [address] [place] [phone] [email or web address] .[facility] Consulting Physician Urology 01/25/19 Tuan Ahmadi MD [address] [place] [phone] [email or web address] Consulting Physician Radiation Oncology 01/25/19 Og Loomis MD [address] [place] [address] [email or web address] Consulting Physician Surgical Oncology 09/10/19 Jean Martinez MD [address] [place] [id number] [email or web address] Consulting Physician Gastroenterology Surgery 08/06/18 Keith Edmondson MD [address] [place] [id number] [email or web address] Consulting Physician Surgical Oncology 09/14/19 Ed Mina MD [address] [place] [address] [email or web address] Consulting Physician Plastic and Reconstructive Surgery 04/17/21 Ro Gilliam MD [address] [place] [phone] [email or web address] Consulting Physician Gastrointestinal Medical Oncology 07/28/18 Jono Hinson MD [address] [place] [address] [email or web address] .[facility] Consulting Physician Gastroenterology, Hepatology and Nutrition 10/09/21 Pasquale Jacome MD [address] [place] [address] [email or web address] Consulting Physician Lymphoma and Myeloma 09/10/18 Clifton Ahmadi MD [address] [place], [place] [id number] [email or web address] Consulting Physician Internal Medicine 04/17/21
[2023-07-22] MEDS ORDERED: LIDOCAINE 1% MPF 5 ML VIAL ONE (20:55)
[2023-07-22] MEDS ORDERED: TDAP (DIPHTH,PERTUSS(ACELL),TET VAC) 0.5 ML VIAL IMVAC ONE (20:55)
--- NOTE | 2023-07-22 21:52 | ER ---
Nurse's Notes [facility] Name: Sloane Dockery Age: 72 yrs Sex: Male : 1950 Arrival Date: 07/22/2023 Time: 20:04 Bed 12 Private MD: Diagnosis: Laceration without foreign body of right thumb without damage to nail Presentation: 07/21 20:15 Chief complaint: Patient states: "I cut my right thumb with a measuring tape. I need a mb9 Tetanus shot.". Coronavirus screen: At this time, the client does not indicate any symptoms associated with coronavirus-19. Ebola Screen: No symptoms or risks identified at this time. Initial Sepsis Screen: Does the patient meet any 2 criteria? No. Patient's initial sepsis screen is negative. Does the patient have a suspected source of infection? No. Patient's initial sepsis screen is negative. Risk Assessment: Do you want to hurt yourself or someone else? Patient reports no desire to harm self or others. Onset of symptoms was July 22, 2023. 20:15 Method Of Arrival: Ambulatory mb9 20:15 Acuity: MAI 4 mb9 Triage Assessment: 20:18 General: Appears in no apparent distress. Behavior is calm, cooperative. Pain: Denies mb9 pain. Musculoskeletal: Range of motion: intact in all extremities. Injury Description: Laceration sustained to right thumb is clean, 0.5 to 2.5 cm long, bleeding moderately. Historical: - Allergies: 20:17 No Known Allergies; mb9 - Home Meds: 20:17 None [Active]; mb9 - PMHx: 20:17 non-hodgkin's lymphoma; prostate cancer; mb9 - PSHx: 20:17 None; mb9 - Immunization history:: Adult Immunizations up to date. - Infectious Disease History:: Denies. - Social history:: Smoking status: Patient denies any tobacco usage or history of. Screenin:07 [facility] ED Fall Risk Assessment (Adult) History of falling in the last 3 months, as6 including since admission No falls in past 3 months (0 pts) Confusion or Disorientation No (0 pts) Intoxicated or Sedated No (0 pts) Impaired Gait No (0 pts) Mobility Assist Device Used No (0 pt) Altered Elimination No (0 pt) Score/Fall Risk Level 0 - 2 = Low Risk Oriented to surroundings, Maintained a safe environment, Educated pt \\T\\ family on fall prevention, incl call for assistance when getting out of bed, Assessed \\T\\ reinforced patient's understanding of fall precautions. Abuse screen: Denies threats or abuse. Denies injuries from another. Nutritional screening: No deficits noted. Tuberculosis screening: No symptoms or risk factors identified. Assessment: 22:09 Reassessment: Patient appears in no apparent distress at this time. Patient and/or as6 family updated on plan of care and expected duration. Pain level reassessed. Patient is alert, oriented x 3, equal unlabored respirations, skin warm/dry/pink. Vital Signs: 20:15 BP 125 / 68; Pulse 61; Resp 18; Temp 97.5; Pulse Ox 97% on R/A; Weight 90.72 kg; Height mb9 5 ft. 10 in. ; Pain 0/10; 22:09 BP 119 / 69; Pulse 70; Resp 18; Pulse Ox 98% ; as6 20:15 Body Mass Index 28.70 (90.72 kg, 177.8 cm) mb9 20:15 Pain Scale: Adult mb9 ED Course: 20:06 Patient arrived in ED. mr 20:17 Triage completed. mb9 20:17 Penny Singh F[facility]-C [facility]. kb 20:17 Fer Stark MD is Attending Physician. kb 20:18 Arm band placed on. mb9 20:49 Jeferson Magallon, DESEAN is Primary Nurse. as6 22:08 Bed in low position. Call light in reach. Provided Education on: wound care. as6 22:08 Assist provider with laceration repair on dorsal aspect of distal phalanx of right as6 thumb that was 2.5 cm. or less using sutures. Set up tray. Performed by Penny ASHTON Dressed with Patient tolerated well. Patient did not have IV access during this emergency room visit. Administered Medications: 20:59 Drug: Boostrix Tdap IM 0.5 ml IM once; as a single dose Route: IM; Site: left deltoid; as6 22:06 Follow up: Response: (VIS) Vaccine information sheet provided today. Questions and/or as6 concerns addressed. VIS edition date: Sep 22, 2020.; No adverse reaction 22:03 Drug: Lidocaine Infiltration (1 %) 1 vials 5 ml Infiltration once; to bedside Volume: 5 as6 ml; Route: Infiltration; 22:06 Follow up: Response: No adverse reaction as6 Medication: 22:07 Vaccine Information Statement (VIS) provided today. Questions and/or concerns as6 addressed. VIS edition date: September 22, 2020. Outcome: 21:51 Discharge ordered by MD. boland 22:08 Discharged to home ambulatory, with significant other, as6 22:08 Condition: stable 22:08 Discharge instructions given to patient, significant other, Instructed on discharge instructions, follow up and referral plans. wound care, Demonstrated understanding of instructions, follow-up care, wound care, 22:09 Patient left the ED. as6 Signatures: Penny Singh, SHADI-C FABRIC WORKER LEADER-Charlotte Loo, Karl Reg Jeferson Henry, RN RN as6 Charlotte Heller, RN RN mb9
--- NOTE | 2023-07-22 21:53 | EDPHYS ---
Physician Documentation [facility] Name: Sloane Dockery Age: 72 yrs Sex: Male : 1950 Arrival Date: 07/22/2023 Time: 20:04 Bed 12 Private MD: ED Physician Fer Stark HPI: 07/22 00:14 This 72 yrs old Male presents to ER via Ambulatory with complaints of Thumb Injury. 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 States he needs a tetanus shot so that is why he came in. . Historical: - Allergies: 07/21 20:17 No Known Allergies; mb9 - Home Meds: 20:17 None [Active]; mb9 - PMHx: 20:17 non-hodgkin's lymphoma; prostate cancer; mb9 - PSHx: 20:17 None; mb9 - Immunization history:: Adult Immunizations up to date. - Infectious Disease History:: Denies. - Social history:: Smoking status: Patient denies any tobacco usage or history of. ROS: 07/22 00:14 Constitutional: As per HPI kb Exam: 00:14 Constitutional: This is a well developed, well nourished patient who is awake, alert, kb and in no acute distress. Head/Face: Normocephalic, atraumatic. ENT: Moist Mucous membranes Cardiovascular: Regular rate Respiratory: Respirations even and unlabored. No increased work of breathing. Talking in full sentences MS/ Extremity: Pulses equal, no cyanosis. Neurovascular intact. Full, normal range of motion. Neuro: Awake and alert, GCS 15, oriented to person, place, time, and situation. Moves all extremities. Normal gait. 00:14 Skin: injury, laceration(s), the wound is approximately 1 cm(s), of the dorsal aspect of distal phalanx of right thumb, that can be described as clean, no foreign body, linear, with mild bleeding, Vital Signs: 07/21 20:15 BP 125 / 68; Pulse 61; Resp 18; Temp 97.5; Pulse Ox 97% on R/A; Weight 90.72 kg; Height mb9 5 ft. 10 in. ; Pain 0/10; 22:09 BP 119 / 69; Pulse 70; Resp 18; Pulse Ox 98% ; as6 20:15 Body Mass Index 28.70 (90.72 kg, 177.8 cm) mb9 20:15 Pain Scale: Adult mb9 Laceration: 21:51 Wound Repair of 1cm ( 0.4in ) subcutaneous laceration to palmar aspect of distal kb phalanx of right thumb. Linear shaped.. Distal neuro/vascular/tendon intact. Anesthesia: Wound infiltrated with 0.5 mls of 1% lidocaine. Wound prep: Extensive cleansing with hibiclenz by me, Wound irrigation with saline by me. Skin closed with 2 5-0 Prolene using simple sutures and sterile technique. Patient tolerated well. MDM: 20:17 Patient medically screened. kb 07/22 00:14 Data reviewed: vital signs, nurses notes. kb 00:15 Differential diagnosis: superficial laceration, tendon injury, vascular injury. kb Counseling: I had a detailed discussion with the patient and/or guardian regarding the historical points, exam findings, and any diagnostic results supporting the discharge/admit diagnosis, the need for outpatient follow up, a family practitioner, to return to the emergency department if symptoms worsen or persist or if there are any questions or concerns that arise at home. 07/21 20:30 Order name: Dressing - Wound; Complete Time: 22:03 kb 07/21 20:30 Order name: Gloves, Sterile; Complete Time: 22:03 kb 07/21 20:30 Order name: Prolene, Sutures; Complete Time: 22:03 kb 07/21 20:30 Order name: Setup Suture Tray; Complete Time: 20:59 kb Administered Medications: 07/21 20:59 Drug: Boostrix Tdap IM 0.5 ml IM once; as a single dose Route: IM; Site: left deltoid; as6 22:06 Follow up: Response: (VIS) Vaccine information sheet provided today. Questions and/or as6 concerns addressed. VIS edition date: Sep 22, 2020.; No adverse reaction 22:03 Drug: Lidocaine Infiltration (1 %) 1 vials 5 ml Infiltration once; to bedside Volume: 5 as6 ml; Route: Infiltration; 22:06 Follow up: Response: No adverse reaction as6 Disposition: 07/22 05:57 Co-signature as Attending Physician, Fer Stark MD I agree with the assessment sp4 and plan of care. I reviewed the patient's care provided by the Advanced Practice Provider and agree with the diagnosis and treatment plan. Disposition Summary: 07/22/23 21:51 Discharge Ordered Notes: Location: Home kb Condition: Stable kb Diagnosis - Laceration without foreign body of right thumb without damage to nail kb Followup: kb - With: Emergency Department - When: As needed - Reason: Worsening of condition Followup: kb - With: Private Physician - When: 2 - 3 days - Reason: Recheck today's complaints, Continuance of care, Re-evaluation by your physician Discharge Instructions: - Discharge Summary Sheet kb - Laceration Care, Adult, [id number] kb Forms: - Medication Reconciliation Form kb - Antibiotic Education kb - Prescription Opioid Use kb - Patient Portal Instructions kb - Leadership Thank You Letter kb Signatures: Penny Singh FNP-C FNP-Jeferson Barclay RN RN as6 Charlotte Heller RN RN mb9 Fer Stark MD MD sp4
[2023-07-22 22:55] VITALS: BP 119/69; TEMP 97.5; O2SAT 98
== END 2023-07-22 22:09 | disposition home or self-care (01) ==
LOC: ER 20:04
PROC: 0HQFXZZ Repair Right Hand Skin, External Approach (ICD-10-PCS; principal; 2023-07-22)
DX: S61.011A Laceration without foreign body of right thumb without damage to nail, initial encounter (principal)
CPT/HCPCS: 96372; 99284; 12001; J2001